=== PATIENT | male | born 1995 | race African-American/Black ===

== ENCOUNTER 2022-05-26 12:21 | Emergency (ER) | payer OTHER ==
[2022-05-26] MEDS ORDERED: TETRACAINE 0.5% HCL 0.6ML DROPPER.BOTTLE OD ONE (12:25)
[2022-05-26] MEDS ORDERED: FLUORESCEIN NA 1 EA STRIP OD ONE (12:26)
[2022-05-26] MEDS ORDERED: TETRACAINE 0.5% OPHTH SOLN 2 ML BOTTLE ONE (12:32)
[2022-05-26] MEDS ORDERED: FLUORESCEIN NA 1 EA STRIP ONE (12:32)
[2022-05-26 12:53] VITALS: BP 135/80; PULSE 70; TEMP 98.7; BMI 25.1
== END 2022-05-26 13:16 | disposition home or self-care (01) ==
LOC: FER 12:21
DX: S05.01XA Injury of conjunctiva and corneal abrasion without foreign body, right eye, initial encounter (principal); Y77.11 Contact lens associated with adverse incidents
CPT/HCPCS: 99283-25